=== PATIENT | female | born 1955 | race African-American/Black ===

== ENCOUNTER → 2016-09-26 | Outpatient (CLI) | payer BC, OTHER ==
[~2016-09-26] VITALS: Ht 181.6 cm; Wt 105.7 kg
[~2016-09-26] MED LIST: CARV12.52 PO; CONTRAST GIVEN MC PRN; CRESTOR5 MG PO; CYCL10TA2 PO; IOHEXOL 300 MG/ML 50 ML VIAL. IJ ONE; IOHEXOL 350 MG/ML 50 ML VIAL. IJ ONE; LIDOCAINE 1% / SOD BICARB 8.4% 20 ML VIAL. IJ ONE; LOSA50TA6 PO; SPIR25TA3 PO; methylPREDNISolone ACETATE 80 MG/ML VIAL. IM ONE
[2016-09-26 13:01] VITALS: BP 153/85
--- NOTE | 2016-09-26 14:10 | RAD ---
EXAM: Fluoroscopically guided right ankle injection. HISTORY: Right ankle pain. Fluoroscopically guided steroid injection is requested. COMPARISON: None. FINDINGS: The procedure along with its risks and benefits were expanded the patient. She agreed to proceed. A timeout procedure was performed. The right ankle joint was visualized fluoroscopically. The overlying skin was sterilely prepped and infiltrated with 1% lidocaine for local anesthesia. Under fluoroscopic guidance, a 25-gauge needle was advanced into the right ankle joint. Intra-articular positioning was confirmed with a small injection of iodinated contrast. 5 mL of 1% lidocaine mixed with 80 mg Depo-Medrol were instilled under fluoroscopic control. Instrumentation was withdrawn and a sterile dressing placed. There were no immediate complications. One fluoroscopic image was obtained. Fluoroscopy time 0.9 minutes. Prior to the procedure, the patient rated her pain at 7/10. Following the procedure it was 3/10. IMPRESSION: 1. Successful fluoroscopically guided right ankle injection.
== END | disposition home or self-care (01) ==
LOC: RAD 12:38
PROVIDERS: ATTEND Nurse Practitioner Gerontology
DX: M19.079 Primary osteoarthritis, unspecified ankle and foot (principal)
CPT/HCPCS: 20605; 77002; J1040; Q9967